=== PATIENT | female | born 1975 | race Caucasian/White ===

== ENCOUNTER 2018-10-18 12:25 | Emergency (ER) | payer OTHER, SELFPAY ==
[2018-10-18 12:27] VITALS: BP 119/73; PULSE 74; RESP 16; TEMP 36.6; O2SAT 98; BMI 22.0
--- NOTE | 2018-10-18 12:44 | RAD_ITS ---
STUDY: X-RAY CHEST REASON FOR EXAM: Female, 43 years old. Syncope TECHNIQUE: Frontal and lateral views of the chest COMPARISON: None. FINDINGS: The lungs are clear. There are no pleural effusions. There is no pneumothorax. The heart is normal in size. The visualized osseous structures are within normal limits. RAD/Chest PA and Lateral IMPRESSION: No acute thoracic pathology. Electronically Signed: Benny Sinclair, at 13:39 EDT Tel , Service support ,
--- NOTE | 2018-10-18 12:44 | EKG12_ITS ---
Test Reason : SYNCOPE Blood Pressure : / mmHG Vent. Rate : 066 BPM Atrial Rate : 066 BPM P-R Int : 152 ms QRS Dur : 092 ms QT Int : 388 ms P-R-T Axes : 073 048 072 degrees QTc Int : 406 ms Normal sinus rhythm Normal ECG Confirmed by DESHAUN NUNEZ, LIBRADO ([id number]), photograph editor ОЛЬГА AGUILAR ([id number]) on 10/21/2018 1:23:48 PM Referred By: LISSA Confirmed By:LIBRADO MEADE MD
--- NOTE | 2018-10-18 12:45 | ED.VISSUMM ---
- ER Visit Summary Date of Service: 10/18/18 Chief Complaint: Syncopal episode and chest pain History of Present Illness: The patient is a 43 F who presents with a syncopal episode that occurred this morning. Patient states she had gone to the bathroom to urinate, and when she came back to her bedroom and sat down on her bed, she suddenly had a sharp pain in her left lower chest. She became dizzy and then her states she passed out on the bed for 10 to 15 seconds. When patient came back around she was sweaty. She is currently not having any chest pain or shortness of breath. She states 2 weeks ago she had 2 days of substernal chest pain that radiating into her back and was pleuritic in nature. It resolved on its own. Patient currently is having a mild sore throat and ear fullness. 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 She denies fever, current chest pain, shortness of breath, abdominal pain, nausea or vomiting, diarrhea. Denies . She has no history of estrogen replacement. She does not smoke. No history of recent travel or surgery. No history of blood clots in the lungs or legs. Patient is on spironolactone for acne and has been on this medication long-term. No other medical history. No family history of coronary artery disease. Physical Examination: Vital signs: afebrile, hemodynamically stable, no hypoxia on room air General: well nourished, well developed, in no distress Skin: warm, dry, no rash, no pallor HEENT: normocephalic and atraumatic; PERRL, EOMI, moist mucous membranes, no oropharyngeal erythema, exudate or swelling, mild anterior cervical lymphadenopathy in the left neck, neck is supple, full active range of motion, TMs are clear and pearly bilaterally Cardiovascular: regular rate and rhythm without murmurs, no peripheral edema, 2+ pulses all distal extremities Respiratory: No increased work of breathing, lungs are clear to auscultation bilaterally, no rales, rhonchi or wheezing Abdominal: Abdomen is soft, nontender with normoactive bowel sounds, no guarding or rebound, no masses MSK: Moves all extremities, no deformities, normal strength Neuro: Awake and alert, oriented ?4. No facial droop, sensation and motor function intact and symmetric Test Results: Abnormal Lab Results 10/18/18 10/18/18 10/18/18 13:00 13:00 13:00 WBC 7.2 RBC 3.94 L Hgb 12.5 Hct 37.3 MCV 94.7 MCH 31.7 MCHC 33.5 RDW 12.8 RDW Differential 44.6 H Plt Count 248 MPV 9.7 Immature Gran % (Auto) 0.100 Neut % (Auto) 68.7 Lymph % (Auto) 16.3 L Page % (Auto) 13.1 H Eos % (Auto) 1.2 Baso % (Auto) 0.6 Absolute Neuts (auto) 5.0 Absolute Lymphs (auto) 1.18 Total Counted Not Reportable D-Dimer Quant (PE/DVT) < 0.27 L Sodium 137 Potassium 3.6 Chloride 104 Carbon Dioxide 29.0 Anion Gap 4 L BUN 11 Creatinine 0.80 Estim Creat Clear Calc 79.11 Est GFR (MDRD) Af Amer 101 Est GFR (MDRD) Non-Af 84 BUN/Creatinine Ratio 13.8 Glucose 89 Calcium 8.5 Total Bilirubin 0.40 AST 12 L ALT 16 Alkaline Phosphatase 66 Troponin I < 0.015 Total Protein 8.2 Albumin 4.2 Globulin 4.0 Albumin/Globulin Ratio 1.0 Lipase 118 TSH 0.83 Serum , Qual 10/18/18 13:00 WBC RBC Hgb Hct MCV MCH MCHC RDW RDW Differential Plt Count MPV Immature Gran % (Auto) Neut % (Auto) Lymph % (Auto) Page % (Auto) Eos % (Auto) Baso % (Auto) Absolute Neuts (auto) Absolute Lymphs (auto) Total Counted D-Dimer Quant (PE/DVT) Sodium Potassium Chloride Carbon Dioxide Anion Gap BUN Creatinine Estim Creat Clear Calc Est GFR (MDRD) Af Amer Est GFR (MDRD) Non-Af BUN/Creatinine Ratio Glucose Calcium Total Bilirubin AST ALT Alkaline Phosphatase Troponin I Total Protein Albumin Globulin Albumin/Globulin Ratio Lipase TSH Serum , Qual NEGATIVE Clinical Impression(s) from Imaging Studies Chest X-Ray 10/18/18 12:44 IMPRESSION: No acute thoracic pathology. Electronically Signed: Benny Sinclair, at 13:39 EDT Tel , Service support , Medications Given Discontinued Medications Sodium Chloride () 1,000 mls @ 1,000 mls/hr IV .Q1H ONE Stop: 10/18/18 13:43 Last Admin: 10/18/18 13:13 Dose: 1,000 mls/hr Emergency Department Course and Treatment: Patient is well-appearing and asymptomatic at this time and had a syncopal episode associated with sharp lower/lateral left-sided chest pain. EKG performed showed a normal sinus rhythm without any ischemic changes, ectopy, or proarrhythmic morphology. D-dimer and troponin as well as other labs were checked, and troponin and d-dimer were both negative, no electrolyte derangements, no leukocytosis or anemia, normal TSH, normal CMP and lipase, negative test. Chest x-ray performed and showed no acute process. Patient was given IV fluids for hydration. She had no ectopy noted on the telemetry while in the emergency department. On reevaluation, patient is very well-appearing and remains asymptomatic. At this time no emergent cause of her syncope has been determined. The left lower lateral chest pain she experienced may have been an intra-abdominal discomfort, triggering vasovagal syncope. Patient has an appointment on Saturday with her primary care office and will keep this appointment. She will return emergency department immediately if any worsening of her condition or recurrence of her syncope. Patient at this time is very well-appearing, hemodynamically stable, tolerating oral intake, and again has no findings on her work-up that are concerning for a life-threatening cause of her syncopal episode. Patient was discharged home in improved condition. Treatment Plan: [] Disposition: [] Impression: Vasovagal syncope This note was generated with [employer] dictation software. It may contain incorrect words, spelling, and punctuation that were not noted in review of the chart prior to signing ED Disposition - Plan for ED Patient: Disposition: Home or Assisted Living Instructions: ED Syncope Vasovagal Referrals: Tomer Whitt III, MD [Primary Care Provider] - Dennys Vergara DO [NON CLINICAL AFFILIATE] - Keep Magdalena appointment Additional Instructions: Your work up today did not show any abnormal findings. We checked your EKG, troponin (a heart lab), d-dimer (a lab that helps us know if you might have a blood clot in your lungs), electrolytes, kidney function, liver function, thyroid, and a chest xray. Your workup did not show any findings that would be concerning for a heart attack or blood clot in your lungs. If you have any worsening of your condition or any new concerning symptoms, please return immediately to the emergency department for another evaluation.
[2018-10-18] MEDS: 0.9% Normal Saline 1,000 ML 1000 ML IV (13:13)
[2018-10-18 13:19] LABS: Absolute Lymphocyte Count 1.18 X10^3/ul (0.83-4.51); Basophil# 0.04 X10^3/uL; Basophil% 0.6 % (0-1); Eosinophil# 0.09 X10^3/uL; Eosinophils% 1.2 % (0-5); Hematocrit 37.3 % (37-47); Hemoglobin 12.5 g/dl (12.0-15.0); Lymphocyte # 1.18 X10^3/ul (4.0); Lymphocyte % 16.3 % (19-41); Mean Corp Hgb Conc 33.5 g/gl (32-36); Mean Corpuscular Hgb 31.7 pg (27.0-32.0); Mean Corpuscular Volume 94.7 fL (81-99); Mean Platelet Vol. 9.7 fl (6.2-12.0); Monocyte# 0.95 X10^3/uL; Monocyte% 13.1 % (0-10); Neutrophil # 4.96 X10^3/uL (2.7-7.7); Neutrophil % 68.7 % (47-70); POSITIVE COUNT NO; POSITIVE DIFFERENTIAL NO; POSITIVE MORPHOLOGY NO; Platelet Count 248 K/mm3 (150-450); RBC Distribution Width CV 12.8 % (11.6-14.6); RBC Distribution Width SD 44.6 fl (35.1-43.9); Red Blood Count 3.94 M/mm3 (4.2-5.4); White Blood Count 7.2 K/mm3 (4.4-11.0)
[2018-10-18 13:26] LABS: Internal QC Validated? YES +Cl - CLEAR BKGD; Pregnancy, Serum, hCG Quali. NEGATIVE Negative
[2018-10-18 13:34] LABS: AST(SGOT) 12 U/L (15-37); Alanine Aminotransfer ALT/SGPT 16 U/L (13-56); Albumin, Serum 4.2 g/dL (3.2-5.0); Alkaline Phosphatase 66 U/L (45-117); Anion Gap 4 (5-15); BUN 11 mg/dL (7-18); BUN/Creat Ratio 13.8 RATIO (10-20); Calcium,Total 8.5 mg/dL (8.5-10.1); Chloride 104 mmol/L (98-107); EST Glomerular Filtration Rate 84 mL/min (>60); Est Glom Filt Rate - Afr Amer 101 mL/min (>60); Estimated Creatinine Clearance 79.11 ml/min; Glucose 89 mg/dL (74-106); Lipase 118 U/L (73-393); Potassium 3.6 mmol/L (3.5-5.1); Protein, Total 8.2 g/dL (6.4-8.2); Sodium Level 137 mmol/L (136-145); Thyroid Stim Hormone (TSH) 0.83 uIU/mL (0.358-3.74)
[2018-10-18 13:41] LABS: D-Dimer Quantitative (DVT/PE) < 0.27 FEU/ug/m (0.27-0.49)
[2018-10-18 14:01] VITALS: BP 98/65; PULSE 63; RESP 17; O2SAT 99
[2018-10-18 14:07] VITALS: BP 108/69; PULSE 62; RESP 16; O2SAT 100
== END 2018-10-18 14:08 | disposition home or self-care (01) ==
PROVIDERS: Emergency Provider Emergency Medicine; Family Provider Family Medicine; PCP Family Medicine
DX: R55 Syncope and collapse (principal); R07.9 Chest pain, unspecified
CPT/HCPCS: 71046; 80053; 83690; 84443; 84484; 84703; 85025; 85379; 93005; 99284